=== PATIENT | female | born 1995 | race Caucasian/White ===

== ENCOUNTER 2018-10-19 19:30 | Emergency (ER) | payer BC ==
[~2018-10-19] VITALS: Wt 70.4 kg
[~2018-10-19 19:30] MED LIST: AZIT250T PO; FLUT9.9S NASAL; IBUP-1542 PO; MED4DP PO
[2018-10-19 19:40] VITALS: BP 119/57; PULSE 82; RESP 16
== END 2018-10-19 22:54 | disposition home or self-care (01) ==
LOC: FTE 19:30
DX: J01.00 Acute maxillary sinusitis, unspecified (principal)
CPT/HCPCS: 99283